=== PATIENT | female | born 1995 | race Hispanic/Latino ===

== ENCOUNTER 2018-08-13 19:29 | Inpatient (IN) | payer OTHER ==
--- OUTSIDE RECORDS SUMMARY | 2018-08-13 19:31 | XMS REPORT ---
:1995 Author Organization eClinicalWorks Care Team Providers Name Role Phone Vamshi Hernandez Provider Role Unavailable Allergies No Known Allergies Problems Problem Type Condition Code Onset Dates Condition Status Problem Normal in third trimester Z34.93 Active Problem Choroid plexus cyst G93.0 Active Problem Encounter for supervision of normal Z34.03 Active first in third trimester Assessment Encounter for supervision of normal Z34.03 Active first in third trimester Assessment Encounter for supervision of normal Z34.01 Active first in first trimester Medications Medication Code Code Instructions Start End Status Dosage System Date Date Vitafol [facility] [id number] 3.33-0.333-34.8 January 24, Active 3 tablets Gummies MG Orally Once a 2017 day Results No Known Results Summary Purpose eClinicalWorks Submission
--- OUTSIDE RECORDS SUMMARY | 2018-08-13 19:31 | XMS REPORT ---
:1995 Author Organization [employer] Care Team Providers Name Role Phone Millie Spicer Provider Role Unavailable Allergies No Known Allergies Problems Problem Type Condition Code Onset Dates Condition Status Problem Normal first in second Z34.02 Active trimester Problem Choroid plexus cyst G93.0 Active Assessment Normal first in second Z34.02 Active trimester Assessment Choroid plexus cyst G93.0 Active Medications Medication Code Code Instructions Start End Status Dosage System Date Date Vitafol [facility] [id number] 3.33-0.333-34.8 January 24, Active 3 tablets Gummies MG Orally Once a 2018 day Results No Known Results Summary Purpose eClinicalWorks Submission
--- OUTSIDE RECORDS SUMMARY | 2018-08-13 19:31 | XMS REPORT ---
:1995 Author Organization [employer]Works Care Team Providers Name Role Phone Vamshi Hernandez Provider Role Unavailable Allergies No Known Allergies Problems Problem Type Condition Code Onset Dates Condition Status Problem Encounter for supervision of normal Z34.03 Active first in third trimester Problem Normal in third trimester Z34.93 Active Problem Needs flu shot Z23 Active Assessment Encounter for supervision of normal Z34.03 Active first in third trimester Problem Choroid plexus cyst G93.0 Active Medications Medication Code Code Instructions Start End Status Dosage System Date Date Vitafol [facility] [id number] 3.33-0.333-34.8 Active 3 tablets Gummies MG Orally Once a day Results No Known Results Summary Purpose eClinicalWorks Submission
--- OUTSIDE RECORDS SUMMARY | 2018-08-13 19:31 | XMS REPORT ---
:1995 Author Organization eClinicalWorks Care Team Providers Name Role Phone Millie Spicer Provider Role Unavailable Allergies No Known Allergies Problems Problem Type Condition Code Onset Dates Condition Status Assessment Normal first in second Z34.02 Active trimester Problem Normal first in second Z34.02 Active trimester Medications Medication Code Code Instructions Start End Status Dosage System Date Date Vitafol [facility] [id number] 3.33-0.333-34.8 January 24, Active 3 tablets Gummies MG Orally Once a 2017 day Results No Known Results Summary Purpose eClinicalWorks Submission
--- OUTSIDE RECORDS SUMMARY | 2018-08-13 19:31 | XMS REPORT ---
:1995 Author Organization eClinicalWorks Care Team Providers Name Role Phone Millie Spicer Provider Role Unavailable Allergies No Known Allergies Problems Problem Type Condition Code Onset Dates Condition Status Problem Choroid plexus cyst G93.0 Active Problem Normal in third trimester Z34.93 Active Assessment Normal in third trimester Z34.93 Active Medications Medication Code Code Instructions Start End Status Dosage System Date Date Vitafol [facility] [id number] 3.33-0.333-34.8 January 24, Active 3 tablets Gummies MG Orally Once a 2017 Results No Known Results Summary Purpose eClinicalWorks Submission
--- OUTSIDE RECORDS SUMMARY | 2018-08-13 19:31 | XMS REPORT ---
[...] Status Dosage System Date Date Vitafol [facility] [id number] 3.33-0.333-34.8 January 24, Active 3 tablets Gummies MG Orally Once a 2017 Results No Known Results Immunizations Vaccine Administration Date TDAP > 7 Years-Adacel Jun 15, 2018 Summary Purpose eClinicalWorks Submission
--- OUTSIDE RECORDS SUMMARY | 2018-08-13 19:31 | XMS REPORT ---
[...] End Status Dosage System Date Date Vitafol [facility] [id number] 3.33-0.333-34.8 Active 3 tablets Gummies MG Orally Once a day Results No Known Results Summary Purpose eClinicalWorks Submission
[2018-08-13] MEDS ORDERED: OXYTOCIN/LR 20 UNIT/1,000 ML BAG IV SCH (20:40)
[2018-08-13] MEDS ORDERED: PROMETHAZINE 25 MG/ML VIAL IV PRN (21:03)
[2018-08-13] MEDS ORDERED: BUTORPHANOL 1 MG/ML INJ IV PRN (21:03)
[2018-08-13] MEDS ORDERED: Ringers Lactate 1,000 ML IV PRN (21:03)
[2018-08-13] MEDS ORDERED: METHYLERGONOVINE 0.2MG/ML AMP IM PRN (21:03)
[2018-08-13] MEDS ORDERED: ROPIVACAINE HCL 100 ML IV PRN (21:28)
[2018-08-13 21:29] LABS: RPR Titer ND
[2018-08-13] MEDS ORDERED: ROPIVACAINE HCL 0.2% 20ML AMP IV ONE (21:29)
[2018-08-13 21:32] LABS: Urine Appearance CLOUDY; Urine Bilirubin NEGATIVE (NEG); Urine Blood TRACE (NEG); Urine Color YELLOW; Urine Glucose NEGATIVE (NEG); Urine Protein NEGATIVE (NEG); Urine pH 7.5 (5.0-7.0)
[2018-08-13 21:37] LABS: Urine Microscopic Reflex ORDER UMIC
[2018-08-13 21:42] LABS: Absolute Lymphocytes (CBC) 1.7 K/uL (0.7-4.9); Absolute Monocytes 0.8 K/uL (0.1-1.3); Absolute Neutrophil 10.9 K/uL (1.8-8.0); Basophils % 0.6 % (0-1.3); Eosinophils % 0.5 % (0-4.4); Hematocrit 37.3 % (36.0-45.0); Lymphocytes % 12.6 % (15.3-44.8); MCH 29.6 pg (27.0-35.0); MCV 89.7 fL (80-100); MPV 9.6 fL (7.6-11.3); Monocytes % 5.6 % (3.3-12.3); RBC Red Blood Cell Count 4.16 M/uL (3.86-4.86)
[2018-08-13 21:43] LABS: Urine Bacteria 20-50 /HPF (<20); Urine RBC <5 /HPF (NONE SEEN)
[2018-08-13 21:44] LABS: Urine Culture Reflex Order NOT NEEDED; Urine Mucus 1+ /HPF (NONE SEEN)
[2018-08-13] MEDS ORDERED: BUTORPHANOL 1 MG/ML INJ ONE (21:47)
[2018-08-13 21:48] VITALS: BMI 30.4
[2018-08-13] MEDS ORDERED: PROMETHAZINE 25 MG/ML VIAL ONE (21:48)
[2018-08-13] MEDS ORDERED: Ringers Lactate 1,000 ML IV SCH (22:00)
[2018-08-13] MEDS ORDERED: D5LR 1,000 ML with OXYTOCIN 20 UNIT IV SCH ×2 (22:00)
[2018-08-13] MEDS ORDERED: FENTANYL CITR 100 MCG/2 ML ONE (22:36)
[2018-08-13] MEDS ORDERED: LIDOCAINE 1% MPF 30 ML VIAL SQ ONE (23:35)
[2018-08-14] MEDS ORDERED: METHYLERGONOVINE 0.2 MG TAB PO PRN (01:19)
[2018-08-14] MEDS ORDERED: METHYLERGONOVINE 0.2MG/ML AMP IM PRN (01:19)
--- NOTE | 2018-08-14 01:24 | P.BOP ---
Preoperative diagnosis: 39+ week Postoperative diagnosis: same, delivery viable female infant, CANX1 Primary procedure: SCVD viable female Secondary procedure: repair 2 degree midline laceration Estimated blood loss: <300ml Anesthesia: epidural Transferred to: Other (274) Condition: Good
[2018-08-14] MEDS ORDERED: OXYTOCIN/LR 20 UNIT/1,000 ML BAG IV SCH (02:00)
[2018-08-14] MEDS: Oxycodone HCl/Acetaminophen 1 TAB TAB PO PRN ×2 (07:43→19:24)
[2018-08-14] MEDS: IBUPROFEN 200 MG TAB PO PRN ×2 (07:43→13:25)
--- NOTE | 2018-08-14 08:05 | P.PN ---
Date of Service: 08/14/18 S-No complaints O-Afeb, vs stable A-Satisfactory P-Home Wednesday if doing well.
[2018-08-14] MEDS ORDERED: INFLUENZA VACCINE (for 3y+) 0.5 ML DOSE IMVAC ONE (12:00)
--- NOTE | 2018-08-14 20:05 | DN ---
Surgeon: Malachi Marquez MD Ms. Sandoval is a 23-year-old female, 1, para 0, at 39-6/7th weeks gestation, admitted in early labor after placement of epidural and noted to be 4 cm dilated. After placement of epidural catheter and Palmer catheter, rupture of membranes was performed. She was augmented with Pitocin. S he delivered a 7 pounds 3 ounce female infant, 9 and 10, over a second-degree midline perineal laceration with a first stage of labor approximately 4 hours and 11 minutes, second stage labor of 1 hour and 7 minutes. was delivered vertex OA. The cord was clamped, cut, and the place d in a warmer. Cord was clamped after delayed cord clamping, was cut, and was placed on mothe r's upper abdomen. Cord blood was obtained. The placenta was spontaneously expelled and appeared to be intact. Intrauterine examination revealed no retained placental fragments. The laceration was r epaired in the usual fashion with 3-0 Vicryl suture. Estimated total blood loss was less than 300 cc . Patient received 1 mg of Stadol, 12.5 mg of Phenergan IV for analgesia prior to placement of epidu ral catheter. She received excellent benefit from the epidural. JOHN/DENIS Voice ID: [id number] Report ID: [id number]
[2018-08-14 21:41] LABS: RPR (Rapid Plasma Reagin) NON-REACT (NON-REACT)
[2018-08-15] MEDS: IBUPROFEN 200 MG TAB PO PRN ×2 (00:15→06:54)
[2018-08-15 08:16] VITALS: BP 107/64; TEMP 98
--- NOTE | 2018-08-16 02:55 | DS ---
Date of Discharge: 08/15/2018 Final Hospital Discharge Diagnosis: A [id number] , delivered. Complications: Post- blood-loss anemia. Procedures: Artificial rupture of membranes, Pitocin augmentation of labor, spontaneous controlled v aginal delivery of viable female , epidural catheter placement, repair of midline laceration. Hospital Course: The patient is a 23-year-old, , female, 1, para 0, at 39+ w eeks' gestation, admitted in early labor. She delivered 7-pound 3-ounce female infant, Apgars 9 and 10, with epidural anesthesia. She was dismissed on the first day, ambulatory on a select diet, with routine post vaginal delivery activity restrictions. Of note is that her hemoglobin/hemat ocrit dropped from 12.3 and 37.3 to 27.7 . She was instructed to continue taking her prena juan manuel iron and vitamins and buy an gkgf-rqz-deyaryy vitamin. She had a nonreactive RPR. She is A positive blood type. She is dismissed to be seen with the usual dftg-hhvzefy-nsmdzklq activity restrictions by Dr. Hernandez and with a prescription for Tylenol No. 3, #10, for pain relief. JOHN/DENIS Voice ID: [id number] Report ID: [id number]
[2018-08-17 04:25] LABS: HBsAG Nonreactive (Nonreactive)
== END 2018-08-15 11:30 | disposition home or self-care (01) | DRG 806 ==
LOC: L&D 19:29 → 2ND-WC 21:17
PROVIDERS: ADMIT Student in an Organized Health Care Education/Training Program; ATTEND Student in an Organized Health Care Education/Training Program
PROC: 10E0XZZ Delivery of Products of Conception, External Approach (ICD-10-PCS; principal; 2018-08-14)
PROC: 10907ZC Drainage of Amniotic Fluid, Therapeutic from Products of Conception, Via Natural or Artificial Opening (ICD-10-PCS; 2018-08-14)
PROC: 0KQM0ZZ Repair Perineum Muscle, Open Approach (ICD-10-PCS; 2018-08-14)
PROC: 3E033VJ Introduction of Other Hormone into Peripheral Vein, Percutaneous Approach (ICD-10-PCS; 2018-08-14)
DX: O70.1 Second degree perineal laceration during delivery (principal); D62 Acute posthemorrhagic anemia; Z37.0 Single live birth; Z3A.39 39 weeks gestation of pregnancy; O90.81 Anemia of the puerperium
CPT/HCPCS: 36415; 81003; 81015; 85014; 85025; 86592; 86901; 87340; 99218; J0595; J2210; J2550; J2590; J2795; J3010